=== PATIENT | male | born 1965 | race Caucasian/White ===

== ENCOUNTER 2024-03-19 06:32 | Inpatient (IN) | payer MEDICARE ==
[2024-03-15 15:25] LABS: BILIRUBIN,URINE NEGATIVE (Neg); CLARITY,URINE CLEAR (Clear); COLOR,URINE YELLOW (Yellow); GLUCOSE, URINE NEGATIVE (Neg); KETONES,URINE NEGATIVE (Neg); LEUKOCYTE ESTERASE ,URINE NEGATIVE (Neg); NITRITES, URINE NEGATIVE (Neg); OCCULT BLOOD,URINE NEGATIVE (Neg); PH,URINE 5.5 (4.8-8.0); PROTEIN,URINE NEGATIVE (Neg); UROBILINOGEN,URINE 0.2 E.U/dL (0.2-1.0)
[2024-03-15 15:26] LABS: UA COLLECTION TYPE VOIDED
[2024-03-15 15:29] LABS: BASOPHILS % (AUTO) 0.5 % (0-1); EOSINOPHILS # (AUTO) 0.1 X10'3 (0-0.9); EOSINOPHILS % (AUTO) 1.5 % (0-6); LYMPHOCYTES % (AUTO) 33.8 % (21-51); MEAN CORPUSCULAR HGB CONC 32.8 g/dL (33.0-36.5); MEAN CORPUSCULAR VOLUME 82.1 FL (78-98); MEAN PLATELET VOLUME 6.6 FL (7.4-10.4); MONOCYTES # (AUTO) 0.7 X10'3 (0-0.9); MONOCYTES % (AUTO) 11.5 % (2-12); NEUTROPHILS # (AUTO) 3.2 X10'3 (1.8-7.7); NEUTROPHILS % (AUTO) 52.7 % (42-75); PRE OP HEMATOCRIT 39.8 % (42.0-52.0); PRE OP HEMOGLOBIN 13.1 g/dL (14.0-17.9); PRE OP PLATELET COUNT 488 X10'3 (140-440); RED BLOOD COUNT 4.85 X10'6 (4.70-6.10); RED CELL DISTRIBUTION WIDTH 13.9 % (11.5-14.5)
[2024-03-15 15:39] LABS: ALBUMIN 3.5 G/DL (3.4-5.0); ALBUMIN/GLOBULIN RATIO 0.9 (1.1-1.5); ALKALINE PHOSPHATASE 100 IU/L (46-116); BLOOD UREA NITROGEN 18 MG/DL (7-18); BUN/CREATININE RATIO 15.3 (10.0-20.0); CHLORIDE 105 MMOL/L (99-107); CREATININE 1.18 MG/DL (0.60-1.10); PRE OP ALT 21 U/L (30-65); PRE OP ANION GAP 10 (8-16); PRE OP AST 11 U/L (10-37); PRE OP BILIRUB, TOTAL 0.3 MG/DL (0.0-1.0); PRE OP GLUCOSE 97 MG/DL (70-104); PRE OP POTASSIUM 3.9 MMOL/L (3.4-5.1); PRE OP SODIUM 140 MMOL/L (135-145); TOTAL CARBON DIOXIDE 25.2 MMOL/L (24-32); TOTAL PROTEIN 7.5 G/DL (6.4-8.2); eGFR 64 ML/MIN
[2024-03-15 15:48] LABS: PRE OP INR 0.9 INR
[~2024-03-19] VITALS: Ht 185.4 cm; Wt 92.0 kg
[2024-03-19] VITALS (25 sets, daily range): BP systolic 90–151; BP diastolic 60–95; PULSE 58–88; RESP 12–20; TEMP 97.4–98.4; O2SAT 93–99
[~2024-03-19 06:32] MED LIST: ASPI81TA52 PO
[2024-03-19] MEDS: ringers solution, lacted 1,000 ML IV SCH ×3 (07:19→15:00)
[2024-03-19] MEDS: famotidine 20mg tablet PO ONE (07:19)
[2024-03-19] MEDS: cefazolin 2gm/D5W 100mL 100 ML IV ONE (07:20)
[2024-03-19] MEDS ORDERED: BUPIVAcaine/PF 2.5mg/ml (0.25%) 10ml vial ONE (07:21)
[2024-03-19] MEDS ORDERED: bacitracin 15gm ointment TP ONE (07:21)
[2024-03-19] MEDS ORDERED: BUPIVAcaine 0.5% inj/PF 30 ML ONE (08:15)
[2024-03-19] MEDS ORDERED: BUPIVACAINE liposomal/PF 13.3 MG/ML vial IM ONE (08:15)
[2024-03-19] MEDS ORDERED: fentaNYL /PF 50mcg/ml 5ml ampule ONE (08:20)
[2024-03-19] MEDS ORDERED: MIDAZolam 1 MG/ML 5ML VIAL ONE (08:20)
[2024-03-19] MEDS ORDERED: LIDOcaine 2% (20mg/ml) 5ml vial ONE (08:20)
[2024-03-19] MEDS ORDERED: propofol inj 20 ML IV ONE (08:20)
[2024-03-19] MEDS ORDERED: ROPIVAcaine 0.5% (5mg/ml) 30ml vial ONE (08:21)
[2024-03-19] MEDS ORDERED: dexamethasone sod phosphate 4mg/ml inj. ONE (08:21)
[2024-03-19] MEDS ORDERED: sevoflurane 250ml liquid IH ONE (08:25)
[2024-03-19] MEDS ORDERED: succinylcholine 20mg/ml inj IV ONE (08:27)
[2024-03-19] MEDS ORDERED: ondansetron/PF 4mg/2ml inj ONE (09:15)
[2024-03-19] MEDS ORDERED: labetalol 20mg/4ml (5mg/ml) syringe IV PRN (10:15)
[2024-03-19] MEDS ORDERED: ROPIVAcaine 0.2% (10 MG/5 ML) BOLUS INJECTION POPLITEAL PRN (10:15)
[2024-03-19] MEDS ORDERED: morphine 2 MG/ML inj. syringe IV PRN (10:15)
[2024-03-19] MEDS ORDERED: morphine 4 MG/ML inj SYRINge IV PRN (10:15)
[2024-03-19] MEDS ORDERED: fentaNYL/PF 50MCG/1 ML 2ML syringe IV PRN ×2 (10:15)
[2024-03-19] MEDS ORDERED: hydrALAZINE 20mg/ml inj. IV PRN (10:15)
[2024-03-19] MEDS ORDERED: ondansetron/PF 4mg/2ml inj IV PRN ×2 (10:15→13:30)
[2024-03-19] MEDS: vancomycin 1,000mg inj ONE (10:28)
[2024-03-19] MEDS ORDERED: fentaNYL/PF 50MCG/1 ML 2ML syringe ONE (11:32)
[2024-03-19] MEDS ORDERED: ketorolac trometh. 30mg/ml inj. ONE (12:13)
[2024-03-19] MEDS ORDERED: oxyCODONE/APAP 10/325mg tablet PO PRN (13:30)
[2024-03-19] MEDS: ROPIVAcaine 0.2%/PF PUMP/bolus 545 ML POPLITEAL SCH (13:56)
[2024-03-19] MEDS ORDERED: ringers solution, lacted 1,000 ML IV SCH (14:15)
[2024-03-19] MEDS: ceFAZolin 1GM/D5W- ADD-VANTAGE 50 ML IV SCH (16:22)
[2024-03-20 02:00] VITALS: BP 120/75; PULSE 74; RESP 16; TEMP 98.2; O2SAT 97
[2024-03-20 06:57] VITALS: BP 136/84; RESP 65; TEMP 97.9; O2SAT 96
[2024-03-20] MEDS: aspirin 81mg, enteric-coated 1 TAB TABLET.DR PO SCH (08:00)
[2024-03-20] MEDS: enoxaparin 40mg/0.4ml syringe SQ SCH (08:02)
[2024-03-20 10:00] VITALS: BP 115/69; PULSE 75; RESP 14; TEMP 98.7; O2SAT 95
[2024-03-20] MEDS: oxyCODONE/APAP 10/325mg tablet PO PRN (10:32)
[2024-03-20 18:00] VITALS: BP 160/91; PULSE 84; RESP 16; TEMP 98.4; O2SAT 93
[2024-03-20 19:00] VITALS: RESP 16
[2024-03-20 22:00] VITALS: BP 170/90; PULSE 94; RESP 14; TEMP 98.4; O2SAT 100
[2024-03-20] MEDS: sennosides/docusate sodium tablet PO SCH (22:41)
[2024-03-21 06:00] VITALS: BP 164/84; PULSE 98; RESP 17; TEMP 98.6; O2SAT 98
[2024-03-21 07:00] VITALS: RESP 17; O2SAT 98
[2024-03-21 10:00] VITALS: BP 150/94; PULSE 91; RESP 18; TEMP 98.1; O2SAT 96
[2024-03-21 18:00] VITALS: BP 134/91; PULSE 82; RESP 18; TEMP 99.4; O2SAT 96
[2024-03-21 19:00] VITALS: RESP 18; O2SAT 96
[2024-03-21] MEDS: magnesium hydroxide 30ml (MOM) UD suspension PO PRN (20:40)
[2024-03-21 22:00] VITALS: BP 143/66; PULSE 82; RESP 17; TEMP 98.3; O2SAT 97
[2024-03-22 06:00] VITALS: BP 107/63; PULSE 64; RESP 17; TEMP 98.4; O2SAT 96
[2024-03-22 07:00] VITALS: RESP 17; O2SAT 96
[2024-03-22 10:00] VITALS: BP 134/69; PULSE 89; RESP 17; TEMP 98.3; O2SAT 95
[2024-03-22 14:43] VITALS: RESP 16
== END 2024-03-22 15:12 | DRG 469 ==
LOC: PAS IN 06:32 → ORTHO 4S 15:05
PROVIDERS: ADMIT Podiatrist Foot & Ankle Surgery; ATTEND Podiatrist Foot & Ankle Surgery
PROC: 0L8P0ZZ Division of Left Lower Leg Tendon, Open Approach (ICD-10-PCS; 2024-03-19)
PROC: 0SRG0J9 Replacement of Left Ankle Joint with Synthetic Substitute, Cemented, Open Approach (ICD-10-PCS; principal; 2024-03-19 08:25)
DX: M19.072 Primary osteoarthritis, left ankle and foot (principal); M25.775 Osteophyte, left foot; M67.472 Ganglion, left ankle and foot; M67.02 Short Achilles tendon (acquired), left ankle; M24.572 Contracture, left ankle
CPT/HCPCS: 36415; 73600; 76000; 80053; 81003; 82948; 85025; 85610; 85730; 87081; 88300; 97161; 97530; A4618; A6222; A6253; A6449; A6454; A7000; C1713; C1776; C9290; G0378; J0131; J0330; J0690; J1100; J1650; J1885; J2250; J2405; J2704; J2795; J3010; J3370; J3490; J7120

== ENCOUNTER 2024-11-15 15:03 | Inpatient (IN) | payer MEDICARE ==
[~2024-11-15] VITALS: Ht 185.4 cm; Wt 90.5 kg
[~2024-11-15 15:03] MED LIST changes: +MULT-1085 PO
[2024-11-15 16:08] LABS: BASOPHILS % (AUTO) 0.2 % (0-1); EOSINOPHILS # (AUTO) 0.1 X10'3 (0-0.9); EOSINOPHILS % (AUTO) 1.3 % (0-6); HEMOGLOBIN 13.4 g/dl (14.0-17.9); LYMPHOCYTES # (AUTO) 1.2 X10'3 (1.1-4.8); LYMPHOCYTES % (AUTO) 12.7 % (21-51); MEAN CORPUSCULAR HGB CONC 33.4 g/dL (33.0-36.5); MONOCYTES # (AUTO) 1.2 X10'3 (0-0.9); MONOCYTES % (AUTO) 12.5 % (2-12); NEUTROPHILS # (AUTO) 6.8 X10'3 (1.8-7.7); NEUTROPHILS % (AUTO) 73.3 % (42-75); PLATELET COUNT 369 X10'3 (140-440); RED BLOOD COUNT 4.95 X10'6 (4.70-6.10); RED CELL DISTRIBUTION WIDTH 15.1 % (11.5-14.5); WHITE BLOOD COUNT 9.3 X10'3 (4.5-11.0)
[2024-11-15 16:17] LABS: ALBUMIN 3.3 G/DL (3.4-5.0); ANION GAP 13 (8-16); BLOOD UREA NITROGEN 23 MG/DL (7-18); BUN/CREATININE RATIO 20.2 (10.0-20.0); CHLORIDE 103 MMOL/L (99-107); CREATININE 1.14 MG/DL (0.60-1.10); GLUCOSE 124 MG/DL (70-104); POTASSIUM 3.9 MMOL/L (3.5-5.1); SODIUM 140 MMOL/L (135-145); TOTAL CARBON DIOXIDE 23.8 MMOL/L (24-32); eCRCL 80 ML/MIN; eGFR 66 ML/MIN
[2024-11-15] MEDS: piperacillin/tazo 3.375gm/50ml 50 ML IV ONE (20:05)
[2024-11-15] MEDS: normal saline 1000ML IV soln IVB ONE (20:05)
[2024-11-15] MEDS: vancomycin/NS 1 GM ADD-VANTAGE 250 ML IV ONE (20:34)
[2024-11-15] MEDS ORDERED: magnesium hydroxide 30ml (MOM) UD suspension PO PRN (22:50)
[2024-11-15] MEDS ORDERED: magnesium Cl slow-release 64mg tablet PO PRN (22:50)
[2024-11-15] MEDS ORDERED: magnesium sulf-water 2g/50mL 50 ML IV PRN (22:50)
[2024-11-15] MEDS ORDERED: acetaminophen 325mg tablet PO PRN (22:50)
[2024-11-15] MEDS ORDERED: mag hydrox/Alum hydrox/simeth 30ml oral suspension PO PRN (22:50)
[2024-11-15] MEDS ORDERED: magnesium sulf-water 4G/100mL 100 ML IV PRN (22:50)
[2024-11-15] MEDS ORDERED: potassium Cl 20 mEq SR tablet PO PRN ×2 (22:50)
[2024-11-15] MEDS ORDERED: ondansetron/PF 4mg/2ml inj IV PRN (22:50)
[2024-11-15] MEDS ORDERED: potassium Cl 40MEQ/1/2NS 520ml 520 ML IV PRN (22:50)
[2024-11-16 00:05] LABS: BILIRUBIN,URINE NEGATIVE (Neg); CLARITY,URINE CLEAR (Clear); COLOR,URINE YELLOW (Yellow); GLUCOSE, URINE NEGATIVE (Neg); KETONES,URINE NEGATIVE (Neg); LEUKOCYTE ESTERASE ,URINE NEGATIVE (Neg); NITRITES, URINE NEGATIVE (Neg); OCCULT BLOOD,URINE TRACE-INTACT (Neg); PH,URINE 5.5 (4.8-8.0); PROTEIN,URINE NEGATIVE (Neg); UROBILINOGEN,URINE 0.2 E.U/dL (0.2-1.0)
[2024-11-16 00:07] LABS: UA COLLECTION TYPE CLN CATCH MIDSTREAM
[2024-11-16 00:14] LABS: BACTERIA,URINE NONE SEEN /HPF (Neg); RBC,URINE 0-2 /HPF (0-2); SQUAMOUS EPITHELIAL CELL,UR NONE SEEN /LPF (FEW); URIC ACID CRYSTALS 3+ /HPF (NEGATIVE); WBC,URINE NONE SEEN /HPF (0-4)
[2024-11-16 01:14] LABS: % IRON SATURATION 6 % (11-46); IRON 16 UG/DL (53-167); TOTAL IRON BINDING CAPACITY 262 UG/DL (259-388)
[2024-11-16] MEDS: piperacillin/tazo 3.375gm/50ml 50 ML IV SCH (01:27)
[2024-11-16] MEDS: normal saline 1000ml 1,000 ML IV SCH (01:34)
[2024-11-16 02:30] VITALS: BP 127/85; PULSE 82; RESP 16; TEMP 98.9; O2SAT 97
[2024-11-16 06:00] VITALS: BP 121/69; PULSE 61; RESP 19; TEMP 98.1; O2SAT 93
[2024-11-16 07:31] LABS: BASOPHILS % (AUTO) 0.5 % (0-1); EOSINOPHILS # (AUTO) 0.2 X10'3 (0-0.9); EOSINOPHILS % (AUTO) 2.1 % (0-6); HEMATOCRIT 36.4 % (42.0-52.0); HEMOGLOBIN 12.2 g/dl (14.0-17.9); LYMPHOCYTES # (AUTO) 1.3 X10'3 (1.1-4.8); LYMPHOCYTES % (AUTO) 16.2 % (21-51); MEAN CORPUSCULAR HEMOGLOBIN 27.4 PG (27.0-31.0); MEAN CORPUSCULAR HGB CONC 33.5 g/dL (33.0-36.5); MEAN CORPUSCULAR VOLUME 81.8 FL (78-98); MEAN PLATELET VOLUME 7.1 FL (7.4-10.4); MONOCYTES # (AUTO) 1.4 X10'3 (0-0.9); MONOCYTES % (AUTO) 16.8 % (2-12); NEUTROPHILS # (AUTO) 5.4 X10'3 (1.8-7.7); NEUTROPHILS % (AUTO) 64.4 % (42-75); PLATELET COUNT 324 X10'3 (140-440); RED BLOOD COUNT 4.44 X10'6 (4.70-6.10); RED CELL DISTRIBUTION WIDTH 14.9 % (11.5-14.5); WHITE BLOOD COUNT 8.3 X10'3 (4.5-11.0)
[2024-11-16] MEDS: multivitamins, therapeutics tablet PO SCH (07:44)
[2024-11-16] MEDS: vancomycin/NS 1 GM ADD-VANTAGE 250 ML IV SCH (07:44)
[2024-11-16] MEDS: docusate sod 100mg capsule PO SCH (07:44)
[2024-11-16] MEDS: aspirin 81mg, enteric-coated 1 TAB TABLET.DR PO SCH (07:45)
[2024-11-16 08:00] VITALS: RESP 19; O2SAT 93
[2024-11-16] MEDS ORDERED: heparin, porcine 5000 units/ml vial SQ SCH (08:00)
[2024-11-16] MEDS: K and/or MAG REPLACEMENT MC SCH (08:00)
[2024-11-16 08:22] LABS: ALANINE AMINOTRANSFERASE 34 U/L (12-78); ALBUMIN 2.7 G/DL (3.4-5.0); ALBUMIN/GLOBULIN RATIO 0.8 (1.1-1.5); ALKALINE PHOSPHATASE 79 IU/L (46-116); ANION GAP 8 (8-16); ASPARTATE AMINO TRANSFERASE 25 U/L (10-37); BILIRUBIN,TOTAL 0.5 MG/DL (0.1-1.0); BLOOD UREA NITROGEN 16 MG/DL (7-18); BUN/CREATININE RATIO 16.5 (10.0-20.0); CALCIUM 8.1 MG/DL (8.5-10.1); CHLORIDE 107 MMOL/L (99-107); CREATININE 0.97 MG/DL (0.60-1.10); GLUCOSE 96 MG/DL (70-104); MAGNESIUM 2.3 MG/DL (1.5-2.4); SODIUM 140 MMOL/L (135-145); TOTAL CARBON DIOXIDE 24.6 MMOL/L (24-32); TOTAL PROTEIN 6.2 G/DL (6.4-8.2); eCRCL 94 ML/MIN; eGFR 79 ML/MIN
[2024-11-16 10:00] VITALS: BP 135/79; PULSE 83; RESP 18; TEMP 99; O2SAT 97
[2024-11-16] MEDS ORDERED: iohexol 300mg/ml 100ml inj. ONE (17:47)
[2024-11-16 18:00] VITALS: BP 144/77; PULSE 80; RESP 20; TEMP 100.8; O2SAT 97
[2024-11-16] MEDS: heparin, porcine 5000 units/ml vial SQ SCH (19:59)
[2024-11-16 22:00] VITALS: BP 117/62; PULSE 92; RESP 18; TEMP 98.7; O2SAT 98
[2024-11-17 06:00] VITALS: BP 131/73; PULSE 88; RESP 18; TEMP 99; O2SAT 94
[2024-11-17] MEDS: VANCOMYCIN LEVEL IV ONE (07:30)
[2024-11-17 08:00] VITALS: RESP 18; O2SAT 94
[2024-11-17 08:49] LABS: BASOPHILS # (AUTO) 0.1 X10'3 (0-0.2); BASOPHILS % (AUTO) 0.6 % (0-1); EOSINOPHILS # (AUTO) 0.1 X10'3 (0-0.9); EOSINOPHILS % (AUTO) 0.9 % (0-6); HEMATOCRIT 38.5 % (42.0-52.0); HEMOGLOBIN 12.8 g/dl (14.0-17.9); LYMPHOCYTES # (AUTO) 1.5 X10'3 (1.1-4.8); LYMPHOCYTES % (AUTO) 17.3 % (21-51); MEAN CORPUSCULAR HEMOGLOBIN 27.2 PG (27.0-31.0); MEAN CORPUSCULAR HGB CONC 33.2 g/dL (33.0-36.5); MEAN CORPUSCULAR VOLUME 81.8 FL (78-98); MEAN PLATELET VOLUME 7.2 FL (7.4-10.4); MONOCYTES # (AUTO) 1.2 X10'3 (0-0.9); MONOCYTES % (AUTO) 13.5 % (2-12); NEUTROPHILS % (AUTO) 67.7 % (42-75); PLATELET COUNT 353 X10'3 (140-440); RED BLOOD COUNT 4.71 X10'6 (4.70-6.10); WHITE BLOOD COUNT 8.9 X10'3 (4.5-11.0)
[2024-11-17 09:25] LABS: ALANINE AMINOTRANSFERASE 43 U/L (12-78); ALBUMIN 2.8 G/DL (3.4-5.0); ALBUMIN/GLOBULIN RATIO 0.7 (1.1-1.5); ALKALINE PHOSPHATASE 81 IU/L (46-116); ANION GAP 8 (8-16); ASPARTATE AMINO TRANSFERASE 30 U/L (10-37); BILIRUBIN,TOTAL 0.5 MG/DL (0.1-1.0); BLOOD UREA NITROGEN 9 MG/DL (7-18); BUN/CREATININE RATIO 9.4 (10.0-20.0); C-REACTIVE PROTEIN 9.43 MG/DL (0.0-0.5); CALCIUM 8.3 MG/DL (8.5-10.1); CHLORIDE 107 MMOL/L (99-107); CREATININE 0.96 MG/DL (0.60-1.10); GLUCOSE 91 MG/DL (70-104); MAGNESIUM 2.3 MG/DL (1.5-2.4); POTASSIUM 3.9 MMOL/L (3.5-5.1); SODIUM 140 MMOL/L (135-145); TOTAL CARBON DIOXIDE 25.1 MMOL/L (24-32); TOTAL PROTEIN 7.1 G/DL (6.4-8.2); eCRCL 95 ML/MIN; eGFR 80 ML/MIN
[2024-11-17] MEDS ORDERED: vancomycin/NS 1 GM ADD-VANTAGE 250 ML IV SCH (09:26)
[2024-11-17 10:43] VITALS: BP 122/74; PULSE 86; RESP 20; TEMP 98.8; O2SAT 96
[2024-11-17 11:28] LABS: CREATINE KINASE 75 U/L (39-308)
[2024-11-17] MEDS: DAPTOmycin inj. 750 MG in normal saline 100ml IV soln 100 ML IV SCH (11:49)
[2024-11-17] MEDS: acetaminophen 325mg tablet PO PRN (17:45)
[2024-11-17 18:50] VITALS: BP 118/82; PULSE 74; RESP 18; TEMP 98.1; O2SAT 98
[2024-11-17 22:00] VITALS: BP 127/85; PULSE 67; RESP 14; TEMP 98.1; O2SAT 97
[2024-11-18 06:00] VITALS: BP 124/87; PULSE 83; RESP 14; TEMP 99.1; O2SAT 96
[2024-11-18 06:19] LABS: BASOPHILS # (AUTO) 0.1 X10'3 (0-0.2); BASOPHILS % (AUTO) 0.7 % (0-1); EOSINOPHILS # (AUTO) 0.1 X10'3 (0-0.9); EOSINOPHILS % (AUTO) 1.5 % (0-6); HEMATOCRIT 39.8 % (42.0-52.0); HEMOGLOBIN 13.4 g/dl (14.0-17.9); LYMPHOCYTES # (AUTO) 1.7 X10'3 (1.1-4.8); LYMPHOCYTES % (AUTO) 19.8 % (21-51); MEAN CORPUSCULAR HEMOGLOBIN 27.4 PG (27.0-31.0); MEAN CORPUSCULAR HGB CONC 33.6 g/dL (33.0-36.5); MEAN CORPUSCULAR VOLUME 81.3 FL (78-98); MEAN PLATELET VOLUME 6.8 FL (7.4-10.4); MONOCYTES % (AUTO) 11.9 % (2-12); NEUTROPHILS # (AUTO) 5.7 X10'3 (1.8-7.7); NEUTROPHILS % (AUTO) 66.1 % (42-75); PLATELET COUNT 409 X10'3 (140-440); RED BLOOD COUNT 4.89 X10'6 (4.70-6.10); RED CELL DISTRIBUTION WIDTH 14.9 % (11.5-14.5); WHITE BLOOD COUNT 8.6 X10'3 (4.5-11.0)
[2024-11-18 06:37] LABS: ALANINE AMINOTRANSFERASE 65 U/L (12-78); ALBUMIN 2.7 G/DL (3.4-5.0); ALBUMIN/GLOBULIN RATIO 0.6 (1.1-1.5); ALKALINE PHOSPHATASE 84 IU/L (46-116); ANION GAP 6 (8-16); ASPARTATE AMINO TRANSFERASE 40 U/L (10-37); BILIRUBIN,TOTAL 0.4 MG/DL (0.1-1.0); BLOOD UREA NITROGEN 9 MG/DL (7-18); BUN/CREATININE RATIO 9.1 (10.0-20.0); C-REACTIVE PROTEIN 7.87 MG/DL (0.0-0.5); CALCIUM 8.5 MG/DL (8.5-10.1); CHLORIDE 106 MMOL/L (99-107); CREATININE 0.99 MG/DL (0.60-1.10); GLUCOSE 99 MG/DL (70-104); MAGNESIUM 2.4 MG/DL (1.5-2.4); SODIUM 138 MMOL/L (135-145); TOTAL CARBON DIOXIDE 26.5 MMOL/L (24-32); TOTAL PROTEIN 7.2 G/DL (6.4-8.2); eCRCL 92 ML/MIN; eGFR 78 ML/MIN
[2024-11-18] MEDS ORDERED: VANCOMYCIN LEVEL IV ONE (08:30)
[2024-11-18 10:00] VITALS: BP 146/86; PULSE 75; RESP 14; TEMP 98.9; O2SAT 96
== END 2024-11-18 14:30 | disposition home health service (06) | DRG 560 ==
LOC: ER 15:04 → ED HOLD 22:44 → EDBEDREQ 11-16 00:47 → ORTHO 4S 11-16 02:21 → SUR 3N 11-16 16:00
PROVIDERS: ADMIT Internal Medicine Pulmonary Disease; ATTEND Nurse Practitioner Family
PROC: 02HV33Z Insertion of Infusion Device into Superior Vena Cava, Percutaneous Approach (ICD-10-PCS; principal; 2024-11-18)
PROC: B548ZZA Ultrasonography of Superior Vena Cava, Guidance (ICD-10-PCS; 2024-11-18)
DX: T84.623A Infection and inflammatory reaction due to internal fixation device of left tibia, initial encounter (principal); L03.116 Cellulitis of left lower limb; M86.8X7 Other osteomyelitis, ankle and foot; N17.9 Acute kidney failure, unspecified; T84.625A Infection and inflammatory reaction due to internal fixation device of left fibula, initial encounter; D50.9 Iron deficiency anemia, unspecified; E86.0 Dehydration; Y83.1 Surgical operation with implant of artificial internal device as the cause of abnormal reaction of the patient, or of later complication, without mention of misadventure at the time of the procedure; Y92.89 Other specified places as the place of occurrence of the external cause; Z87.891 Personal history of nicotine dependence; Z90.49 Acquired absence of other specified parts of digestive tract
CPT/HCPCS: 36415; 36569; 71045; 73701; 76942; 80048; 80053; 80202; 81001; 81003; 82550; 82570; 82728; 83540; 83550; 83605; 83735; 83930; 83935; 84145; 84300; 85025; 85651; 86140; 87040; 87081; 87207; 93005; 93971; 96365; 96375; 99285; C1751; G0378; J0878; J1644; J2543; J3370; J7030; Q9967

== ENCOUNTER 2025-07-09 12:06 | Outpatient (CLI) | payer MEDICARE ==
--- NOTE | 2025-07-09 13:18 | RADIOLOGY REPORT ---
EXAM: DI ANKLE, COMPLETE(3VW MIN), DI ANKLE, COMPLETE(3VW MIN), DI FLUORO UP TO 1HOUR, DI ANKLE,LIMIT ED (AP/LAT), DI FLUORO UP TO 1HOUR, ANGIO LINE PLACEMENT(PICC NURSE), ANGIO LINE PLACEMENT(PICC NURSE ) CLINICAL INDICATION: S/P TOTAL ANKLE TECHNIQUE: DI ANKLE, COMPLETE(3VW MIN), DI ANKLE, COMPLETE(3VW MIN), DI FLUORO UP TO 1HOUR, DI ANK LE,LIMITED (AP/LAT), DI FLUORO UP TO 1HOUR, ANGIO LINE PLACEMENT(PICC NURSE), ANGIO LINE PLACEMENT(PI CC NURSE) Comparison: CT CT LOWER EXTREMITY on DOS: 11/16/24, CT CT LOWER EXTREMITY on DOS: 08/13/24, DI ANKLE,L IMITED (AP/LAT) on DOS: 03/19/24, RIGHT ANKLE on DOS: 02/19/24 FINDINGS/IMPRESSION: Postsurgical changes involving the medial malleolus. Status post arthroplasty of the distal tibial shaft.
== END 2025-07-09 23:59 | disposition home or self-care (01) ==
LOC: RAD 12:06
PROVIDERS: ATTEND Podiatrist Foot & Ankle Surgery
DX: Z96.653 Presence of artificial knee joint, bilateral (principal); Z98.890 Other specified postprocedural states
CPT/HCPCS: 73610